=== PATIENT | male | born 1945 | race Caucasian/White ===

== ENCOUNTER 2016-10-12 15:51 | Emergency (ER) ==
[2016-10-12 16:00] VITALS: BP 149/84; TEMP 98.8; BMI 33.0
[2016-10-12] MEDS ORDERED: LIDOCAINE 1 % AMP 5 ML (SUTURES) SUBCUT STA (16:02)
--- NOTE | 2016-10-12 16:44 | ED.PDOC ---
General ED Provider: Dr. ROBERT GERMAIN JR Chief Complaint: Laceration Stated Complaint: WAS CUTTING A NYLON STRAP ON HIS BOAT...HAD A NEW RAZOR BLADE AND SLICED PROXIMAL, PALM SIDE OF THUMB[End]at 10:00 98.8 79 20 96% 149/ 84 2 CM LACERATION[End]2 CM LACERATION PALM SIDE , PROXIMAL THUMB ON RIGHT HAND [End] Time Seen by Physician: 16:44 Mode of Arrival: Walk-In Information Source: Patient Exam Limitations: No limitations Nursing and Triage Documentation Reviewed and Agree: No Review of Systems - Review Of Systems Constitutional: Reports: No symptoms Eyes: Reports: No symptoms Ears, Nose, Mouth, Throat: Reports: No symptoms Respiratory: Reports: No symptoms Cardiac: Reports: No symptoms GI: Reports: No symptoms : Reports: No symptoms Musculoskeletal: Reports: No symptoms Skin: Reports: Lesions (2cm lac thumb) Neurological: Reports: No symptoms Endocrine: Reports: No symptoms Hematologic/Lymphatic: Reports: No symptoms All Other Systems: Other Past Medical History - Past Medical History Previously Healthy: Yes Endocrine: Reports: Dyslipidemia Cardiovascular: Reports: CAD, Hypertension Respiratory: Reports: None Hematological: Reports: None Gastrointestinal: Reports: None Genitourinary: Reports: None Neuro/Psych: Reports: None Musculoskeletal: Reports: None Cancer: Reports: None - Surgical History General Surgical History: Reports: Unknown - Family History Family History: Reports: Unknown - Social History Smoking Status: Current some day smoker, Chews tobacco Hx Substance Use: No Alcohol Screening: Occasionally - Immunizations Tetanus Shot up to Date: Yes Physical Exam - Physical Exam Appearance: Well-appearing Pain Distress: Mild Eyes: MAGGIE, EOMI, Conjunctiva clear Neck: Supple Respiratory: Airway patent Musculoskeletal: Normal strength, ROM intact Skin: Warm, Dry, Normal color Neurological: Sensation intact, Motor intact, Reflexes intact, Cranial nerves intact, Alert, Oriented Procedures - Laceration/Wound Repair No standard instances Wound Description: Linear Wound Length (cm): 2 Wound Explored: Clean Wound Irrigated: Yes Wound Prep: Saline Anesthesia: Lidocaine Wound Repaired With: Sutures Suture Size and Type: 4-0 nylon Number of Sutures: 5 Layer Closure?: No Critical Care Note - Critical Care Note Total Time (mins): 0 Course - Course Orders, Labs, Meds: Orders Category Date Time Status Lidocaine HCl/Pf [Lidocaine 1 % Amp 5 ml (Sutures)] MEDS 10/12/16 16:02 Discontinued 5 ml SUBCUT ONCE STA Medications Discontinued Medications Generic Name Dose Route Start Last Admin Trade Name Eufemia PRN Reason Stop Dose Admin Lidocaine HCl 5 ml 10/12/16 16:02 10/12/16 16:31 Lidocaine 1 % Amp 5 Ml (Sutures) SUBCUT 10/12/16 16:03 5 ml ONCE STA Administration Vital Signs: Temp Pulse Resp BP Pulse Ox 10/12/16 15:51 98.8 F 79 20 149/84 H 96 Departure - Departure Time of Disposition: 16:46 Disposition: HOME SELF-CARE Discharge Problem: Laceration - injury Instructions: Laceration (ED), Care For Your Stitches (ED) Condition: Good Pt referred to PMD for follow-up: Yes Additional Instructions: clean and dry for three days then may cleanse wit peroxide daily dressing change and change if wet or soaked sutures out in one week Allergies/Adverse Reactions: Allergies No Known Allergies Allergy (Unverified 10/12/16 16:00) Home Medications: Ambulatory Orders Aspirin [Aspir-Low] 81 mg PO DAILY 10/12/16 Lisinopril 20 mg PO DAILY 10/12/16 Pravastatin Sodium [Pravachol] 40 mg PO BEDTIME 10/12/16 Tamsulosin HCl [Flomax] 1 cap PO DAILY 10/12/16 Verapamil HCl [Verapamil ER] 1 tab PO BID 10/12/16
== END 2016-10-12 17:05 | disposition home or self-care (01) ==
LOC: ED 15:51
DX: S61.011A Laceration without foreign body of right thumb without damage to nail, initial encounter (principal); W26.0XXA Contact with knife, initial encounter; F17.210 Nicotine dependence, cigarettes, uncomplicated; F17.220 Nicotine dependence, chewing tobacco, uncomplicated
CPT/HCPCS: 96372; 99283